=== PATIENT | female | born 1930 | race Caucasian/White ===

== ENCOUNTER 2016-06-01 21:33 | Inpatient (IN) | payer OTHER, MEDICARE ==
--- NOTE | 2016-06-01 21:47 | EDPHY ---
H & P - Medical/Surgical History Hx Asthma: No Hx Chronic Respiratory Disease: No Hx Diabetes: No Hx Cardiac Disease: Yes Hx Renal Disease: No Hx Cirrhosis: No Hx Alcoholism: No Hx HIV/AIDS: No Hx Splenectomy or Spleen Trauma: No Other PMH: depression, anxiety, prolapse colon 04/23 and 10/20 sx, valve disease and anemia Time Seen by Provider: 06/01/16 21:35 HPI/ROS: CHIEF COMPLAINT: Left ankle deformity and pain HISTORY OF PRESENT ILLNESS: 86-year-old female arrives via ambulance complaining of acute left ankle pain and deformity after her foot slipped on icy surface and was noted to have a deformity to the ankle, unable to bear weight. No other injury. No proximal pain or injury. No head injury. No back pain or injury. No straddle injury. Patient is currently in hospice secondary to multiple myeloma with diffuse lytic lesions REVIEW OF SYSTEMS: A ten point review of systems was performed and is negative with the exception of the items mentioned in the HPI PAST MEDICAL & SURGICAL HISTORY: multiple myeloma with lytic lesions. SOCIAL HISTORY: lives by herself PHYSICAL EXAM (Prior to examination, patient consented to physical exam, hands were washed and my usual and customary physical exam procedures followed) 1) GENERAL: Well-developed, well-nourished, alert and oriented. Appears to be in no acute distress. Answering questions appropriately. Smiling. 2) HEAD: Normocephalic, atraumatic 3) HEENT: Pupils equal, round, reactive to light bilaterally. Sclera anicteric. 4) NECK: Full range of motion, no meningeal signs. 5) LUNGS: Clear auscultation bilaterally, no wheezes, no rhonchi, no retractions. 6) HEART: Regular rate and rhythm, no murmur, no heave, no gallop. 7) ABDOMEN: No guarding, no rebound, no focal tenderness, 8) MUSCULOSKELETAL: Left lower extremity: Posterior same splint in place, removed revealing in externally rotated foot, visible deformity . DP PT pulses present and brisk with brisk capillary refill. 9) BACK: no midline vertebral tenderness, no fluctuance, no step-off, no obvious trauma, no visual or palpable abnormality. 10) SKIN: No rash, no petechiae. DIFFERENTIAL DIAGNOSIS: In no particular order including but not limited to fracture, sprain, pathologic fracture, compartment syndrome (Kimberly,Eliane She) Constitutional: Initial Vital Signs Temperature (C) 36.5 C 06/01/16 21:33 Heart Rate 86 06/01/16 21:33 Respiratory Rate 16 06/01/16 21:33 Blood Pressure 163/79 H 06/01/16 21:33 O2 Sat (%) 94 06/01/16 21:33 O2 Delivery Mode Room Air Allergies/Adverse Reactions: No Known Allergies Allergy (Verified 06/01/16 21:47) Home Medications: Medication Instructions Recorded ARIPiprazole [Abilify 2 mg (*)] 2 mg PO HS 10/13/15 Docusate Calcium 240 mg PO DAILY PRN 10/13/15 Oxcarbazepine [Trileptal] 150 mg PO BID 10/13/15 Venlafaxine HCl [Venlafaxine HCl 75 mg PO DAILY 10/13/15 ER] Venlafaxine HCl [Venlafaxine HCl 150 mg PO DAILY 10/13/15 ER] Acetaminophen [Tylenol 325mg (*)] 650 mg PO Q4 PRN #0 tab 10/22/15 Aspirin [Aspirin 81mg (*)] 81 mg PO DAILY 06/02/16 Cholecalciferol Vit D3 [Vitamin D3 1,000 units PO DAILY 06/02/16 (*)] Medical Decision Making Procedures: 10:00 p.m.: Procedure: Dislocation reduction. . The fractured-dislocation of the left ankle was reduced using traction and counter traction technique without complications. Post reduction the patient's neurovascular exam is normal. Post reduction x-ray demonstrates reduction of the joint to the anatomic position. The procedure was performed by myself. She has brisk pulses and capillary refill post reduction. Normal color normal temperature post reduction Procedure: Fracture treatment. The patient had x-rays taken and I confirmed that the patient had a fracture dislocation of the left ankle a 3 way Ortho Glass splint was applied by ER equipment engineering technician. After application of the splint I returned and re-examined the patient. The splint was adequately immobilizing the joint and distal to the splint the patient's circulation and sensation were intact. Patient shows no signs of compartment syndrome (Eliane Harris She) ED Course/Re-evaluation: 9:56 p.m.: Patient's daughter is at bedside and they confirmed the patient's hospice status. They do not want any surgical intervention performed. The patient does live by herself and has nursing care during the daylight hours only. Plan will be fracture/dislocation reduction, splinting, admit to hospitalist for further evaluation and possible transfer to a [facility] facility, and consultation with family. 10:21 p.m.: Phone consultation with hospitalist Dr. Storey who will admit patient. Discussed case with Dr Hernandez. 10:25 p.m.: Phone consultation with orthopedic PA Darlin with Dr Marcial Mitchell. Once again spoke with the family informed them that without surgical intervention patient will more than likely never be able to bear weight on this extremity. The patient and family verbalized understanding of this and they request no surgical intervention. (Eliane Harris) I did not see this patient while she was in the emergency department. However her care was discussed with the PA while the patient was in the department. I agree with treatment plan and management (Thai Hernandez) - Data Points Laboratory Results: Laboratory Results 06/01/16 21:42 06/01/16 21:42 Medications Given: Discontinued Medications Aripiprazole (Abilify) 2 mg PO HS BENNETT Stop: 11/28/16 23:10 Last Admin: 06/02/16 00:23 Dose: 2 mg Fentanyl (Sublimaze) 100 mcg IV EDNOW ONE Stop: 06/01/16 22:01 Last Admin: 06/01/16 22:00 Dose: 100 mcg Sodium Chloride (Ns) 1,000 mls @ 0 mls/hr IV ONCE ONE PRN Reason: Wide Open Stop: 06/01/16 22:01 Last Admin: 06/01/16 22:00 Dose: 1,000 mls Oxcarbazepine (Trileptal) 150 mg PO BID BENNETT Stop: 11/28/16 23:10 Last Admin: 06/02/16 09:55 Dose: 150 mg Departure - Departure Disposition: [facility] Inpatient Acute Clinical Impression: Closed left ankle fracture Qualifiers: Encounter type: initial encounter Qualified Code(s): S82.892A - Other fracture of left lower leg, initial encounter for closed fracture Condition: Fair
[2016-06-01] MEDS ORDERED: fentaNYL 100 MCG/2 ML INJ ONE (21:52)
[2016-06-01] MEDS ORDERED: fentaNYL 100 MCG/2 ML INJ IV ONE (22:00)
[2016-06-01] MEDS ORDERED: NS 1,000 ML IV ONE (22:00)
[2016-06-01 22:28] LABS: % IMMATURE GRANULYOCYTES 0.4 % (0.0-1.1); ABSOLUTE IMMATURE GRANULOCYTES 0.03 10^3/uL (0.00-0.10); ADD DIFF? NO; ADD MORPH? NO; ADD SCAN? NO; ATYPICAL LYMPHOCYTE FLAG 10 (0-99); FRAGMENT RBC FLAG 0 (0-99); HEMATOCRIT 40.6 % (38.0-47.0); HEMOGLOBIN 13.4 g/dL (12.6-16.3); LEFT SHIFT FLG 0 (0-99); LIPEMIA HEMOLYSIS FLAG 80 (0-99); MEAN CELL HEMOGLOBIN 28.9 pg (27.9-34.1); MEAN CELL VOLUME 87.7 fL (81.5-99.8); MEAN PLATELET VOLUME 9.9 fL (8.7-11.7); PLATELET CLUMPS FLAG 10 (0-99); PLATELET COUNT 271 10^3/uL (150-400); RED BLOOD CELL COUNT 4.63 10^6/uL (4.18-5.33); RED CELL DISTRIBUTION WIDTH 16.5 % (11.5-15.2)
[2016-06-01 22:32] LABS: ANION GAP 10 mEq/L (8-16); CARBON DIOXIDE 27 mEq/l (22-31); CHLORIDE 100 mEq/L (97-110); CREATININE 0.8 mg/dL (0.6-1.0); GLOMERULAR FILTRATION RATE > 60; GLUCOSE 94 mg/dL (70-100); POTASSIUM 4.4 mEq/L (3.5-5.2); SODIUM 137 mEq/L (134-144)
[2016-06-01 22:36] LABS: INR 0.98 (0.83-1.16); PROTIME(PATIENT) 12.9 SEC (12.0-15.0)
[2016-06-01 22:37] LABS: APTT 23.2 SEC (23.0-38.0)
[2016-06-01] MEDS ORDERED: ONDANSETRON 4 MG/2 ML VIAL IVP PRN (23:08)
[2016-06-01] MEDS ORDERED: ONDANSETRON DISINTEGRATING 4 MG TAB PO PRN (23:08)
[2016-06-01] MEDS ORDERED: ARIPiprazole 2 MG TAB PO SCH (23:11)
[2016-06-01] MEDS ORDERED: HYDROmorphONE/DILAUDID 1 MG/ML SYR IVP PRN (23:12)
--- NOTE | 2016-06-01 23:36 | PDGENHP ---
History and Physical - Chief Complaint fall with ankle pain - History of Present Illness Patient is an 86-year-old female with a history of depression and multiple myeloma, for which she is currently enrolled in Hospice, who presents to the ED with L ankle pain after a fall. Patient was out with her son walking down a [place] sidewalk, when she slipped on ice and fell resulting in acute L ankle pain. Patient denies head trauma or LOC, states she landed on her L side. On inspection of her ankle, there was an obvious deformity and she was unable to apply any weight to the limb. EMS was called and she was transported to the ED. Patient denies any recent fevers, chills, headache, dizziness, chest pain, palpitations, cough, shortness of breath, abd pain, n/v/d or dysuria. Regarding her MM, she has numerous lytic lesions of her skull, spine and long bones, however, has not yet suffered a fracture. She was diagnosed in 10/2015, was initially undergoing chemotherapy, however, by 04/2016 has decided to enrol in hospice, in conjunction with her family. On arrival to the ED, patient was afebrile and hemodynamically stable. She had an obvious L ankle deformity and x-ray confirmed displaced L ankle fracture. Dislocation was reduced and placed in a splint, with reduction confirmed on repeat X-ray. Labs were unremarkable. Patient and her family all agreed that they would not want to pursue any surgical correction/intervention on the ankle. Ortho was consulted and then the patient was admitted to the hospitalist service. History Information - Allergies/Home Medication List Allergies/Adverse Reactions: No Known Allergies Allergy (Verified 06/01/16 21:47) Home Medications: ARIPiprazole [Abilify 2 mg (*)] 2 mg PO DAILY 10/13/15 [Last Taken 10/13/15] Calcium Carbonate/Vitamin D3 [Calcium 600-Vit D3 400 Tablet] 1 each PO BID 10/12 [Last Taken 10/13/15] Cholecalciferol Vit D3 [Vitamin D3] 400 units PO DAILY 10/13/15 [Last Taken 10/21] Docusate Calcium 240 mg PO DAILY 10/13/15 [Last Taken Unknown] Oxcarbazepine [Trileptal] 150 mg PO BID 10/13/15 [Last Taken 10/13/15] Venlafaxine HCl [Venlafaxine HCl ER] 75 mg PO DAILY 10/13/15 [Last Taken ] Venlafaxine HCl [Venlafaxine HCl ER] 150 mg PO DAILY 10/13/15 [Last Taken ] I have personally reviewed and updated: family history, medical history, social history, surgical history - Past Medical History Additional medical history: multiple myeloma with multiple lytic lesions of the skull, spine and long bones. Enrolled in hospice care, 04/2016. Depression - Surgical History Additional surgical history: tonsillectomy. cataracts. colon prolapse repair x 2 - Family History Positive for: non-pertinent - Social History Smoking Status: Never smoked Alcohol Use: None Drug Use: None Additional social history: Patient currently lives alone, with family nearby, also has home health aid several times a week. Was recently prescribed a walker to be used with ambulation. Review of Systems ROS: 10pt was reviewed & negative except for what was stated in HPI & below Physical Exam Temp Pulse Resp BP Pulse Ox 36.6 C 80 16 139/82 H 99 06/01/16 22:42 06/01/16 22:42 06/01/16 22:42 06/01/16 22:42 06/01/16 22:48 O2 (L/minute) 2 Constitutional: no apparent distress, appears nourished, not in pain Eyes: PERRL, anicteric sclera, EOMI Ears, Nose, Mouth, Throat: moist mucous membranes, hearing normal, ears appear normal, no oral mucosal ulcers Cardiovascular: regular rate and rhythym, no murmur, rub, or gallop, pulses symmetric bilaterally, No JVD, No edema Peripheral Pulses: 2+: dorsalis-pedis (R), dorsalis-pedis (L) Respiratory: no respiratory distress, no rales or rhonchi, clear to auscultation Gastrointestinal: normoactive bowel sounds, soft, non-tender abdomen, no palpable masses, No guarding, No rebound Genitourinary: no bladder fullness, no bladder tenderness Skin: warm, normal color, abrasion (on L forearm, wrapped) Musculoskeletal: other (L ankle in soft splint; neurovascularly intact bilaterally; no other joint pain) Neurologic: AAOx3, sensation intact bilaterally, CN II-XII Intact, No weakness, No numbness, No pronator drift, No facial droop Psychiatric: interacting appropriately, not anxious, not encephalopathic, thought process linear Lab Data & Imaging Review 06/01/16 21:42 06/01/16 21:42 WBC 6.71 10^3/uL (3.80-9.50) 06/01/16 21:42 RBC 4.63 10^6/uL (4.18-5.33) 06/01/16 21:42 Hgb 13.4 g/dL (12.6-16.3) 06/01/16 21:42 Hct 40.6 % (38.0-47.0) 06/01/16 21:42 MCV 87.7 fL (81.5-99.8) 06/01/16 21:42 MCH 28.9 pg (27.9-34.1) 06/01/16 21:42 MCHC 33.0 g/dL (32.4-36.7) 06/01/16 21:42 RDW 16.5 % (11.5-15.2) H 06/01/16 21:42 Plt Count 271 10^3/uL (150-400) 06/01/16 21:42 MPV 9.9 fL (8.7-11.7) 06/01/16 21:42 Neut % (Auto) 54.6 % (39.3-74.2) 06/01/16 21:42 Lymph % (Auto) 34.7 % (15.0-45.0) 06/01/16 21:42 Dawes % (Auto) 6.9 % (4.5-13.0) 06/01/16 21:42 Eos % (Auto) 2.7 % (0.6-7.6) 06/01/16 21:42 Baso % (Auto) 0.7 % (0.3-1.7) 06/01/16 21:42 Nucleat RBC Rel Count 0.0 % (0.0-0.2) 06/01/16 21:42 Absolute Neuts (auto) 3.66 10^3/uL (1.70-6.50) 06/01/16 21:42 Absolute Lymphs (auto) 2.33 10^3/uL (1.00-3.00) 06/01/16 21:42 Absolute Monos (auto) 0.46 10^3/uL (0.30-0.80) 06/01/16 21:42 Absolute Eos (auto) 0.18 10^3/uL (0.03-0.40) 06/01/16 21:42 Absolute Basos (auto) 0.05 10^3/uL (0.02-0.10) 06/01/16 21:42 Absolute Nucleated RBC 0.00 10^3/uL (0-0.01) 06/01/16 21:42 Immature Gran % 0.4 % (0.0-1.1) 06/01/16 21:42 Immature Gran # 0.03 10^3/uL (0.00-0.10) 06/01/16 21:42 PT 12.9 SEC (12.0-15.0) 06/01/16 21:42 INR 0.98 (0.83-1.16) 06/01/16 21:42 APTT 23.2 SEC (23.0-38.0) 06/01/16 21:42 Sodium 137 mEq/L (134-144) 06/01/16 21:42 Potassium 4.4 mEq/L (3.5-5.2) 06/01/16 21:42 Chloride 100 mEq/L (97-110) 06/01/16 21:42 Carbon Dioxide 27 mEq/l (22-31) 06/01/16 21:42 Anion Gap 10 mEq/L (8-16) 06/01/16 21:42 BUN 31 mg/dL (7-23) H 06/01/16 21:42 Creatinine 0.8 mg/dL (0.6-1.0) 06/01/16 21:42 Estimated GFR > 60 06/01/16 21:42 Glucose 94 mg/dL (70-100) 06/01/16 21:42 Calcium 10.0 mg/dL (8.5-10.4) 06/01/16 21:42 Visualized and Interpreted imaging results: Yes Interpretation: L ankle x-ray: Displaced fracture of L distal fibular shaft and medial malleolus with dislocation laterally Assessment & Plan Assessment: Patient is an 86/F with multiple myeloma on hospice care who presents to the ED after a mechanical fall that has resulted in an acute closed L ankle fracture and dislocation. Dislocation has been reduced in the ED and patient has refused any surgical intervention for the fracture. Plan: # acute L ankle fracture S/p reduction and splint placement. Patient currently unable to weight bear and ortho has suggested that without surgical intervention, this may not be possible. Patient and her family are informed and aware of this, but would rather not have any invasive surgical procedure and would like to focus on comfort measures only. Will control pain, obtain PT/OT assessment to determine safety of patient returning home vs manager long term care care facility. # fall Per patient and her son who witnessed the fall, appears to have been purely mechanical in nature. Denies any preceding symptoms, cardiac symptoms, head trauma or loss of consciousness. Will f/u PT/OT recommendations, place on fall precautions. # multiple myeloma Patient reports pain is currently well controlled. Will confirm and continue home med regimen. # depression Stable, will cont home meds. # dispo: admit to observation status # DNR/DNI
[2016-06-02] MEDS: OXcarbazepine 300 MG TAB PO SCH ×3 (00:22→20:17)
[2016-06-02] MEDS: oxyCODONE IR 5 MG TAB PO PRN ×5 (04:37→16:55)
[2016-06-02] MEDS: ACETAMINOPHEN 325 MG TAB PO PRN ×2 (06:30→16:55)
--- NOTE | 2016-06-02 09:37 | GHP ---
DATE OF ADMISSION: 06/01/2016 ADMITTING DIAGNOSES: Left bimalleolar ankle fracture/dislocation. HISTORY OF PRESENT ILLNESS: The patient is an 86-year-old woman with history of depression, multipl e myeloma. She has been treated in hospice. She presented to the emergency room after a fall. She was evidently walking with her son and she slipped on the ice and fell. She had deformity in the l eft ankle. She did not lose consciousness. No other injuries were noted. She presented to the ER with obvious ankle deformity. Initial films showed a fracture-dislocation. Patient was reduced in the emergency room using a distraction dorsiflexion maneuver and placed into a posterior splint. PAST MEDICAL HISTORY: ALLERGIES: None. MEDICATIONS: Listed in chart. REVIEW OF SYSTEMS: Moderate overall weakness. No chills. No headache. No dizziness. No chest pa in. No shortness of breath. No cardiac palpitations. 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 She had not previously suffered a fracture. Initial diagnosis was in October of 2015. She was undergoing chemotherapy but decided April 2016 to proceed with hospice care. PHYSICAL EXAMINATION: GENERAL: Patient is alert, oriented, cooperative exam. She seems reasonably comfortable. CHEST: Clear. CARDIAC: Regular rate and rhythm. Normal S1, S2. No gallops or murm urs. ABDOMEN: Nontender. EXTREMITIES: Examination of the lower extremities reveal 1+ dorsalis pe dis pulses. Sensation is intact. She is able to flex, extend the toes. Moderate swelling in the l eft ankle. ASSESSMENT: Fracture-dislocation left ankle with both medial and lateral malleolar components, poss ible small posterior malleolar segment. PLAN: After a lengthy discussion with the family about her baseline medical status and multiple mye rusty, it is felt that the most prudent course of treatment is to proceed with open reduction, credit intern al fixation of her left bimalleolar ankle fracture. This will give her mobility and [facility]. Consent was obtained. Risks were described including the possibility of nonun ion, malunion, posttraumatic arthrosis. The patient understands these risks. We will do routine merlos rgical risks, elected to proceed with the surgery. /[id number]/MODL
[2016-06-02] MEDS: ENOXAPARIN 40 MG/0.4 ML SYR SC SCH (09:56)
--- NOTE | 2016-06-02 10:55 | HOSPPROG ---
Hospitalist Progress Note Assessment/Plan: Patient is an 86/F with multiple myeloma on hospice care who presents to the ED after a mechanical fall that has resulted in an acute closed L ankle fracture and dislocation. Dislocation has been reduced in the ED and patient has refused any surgical intervention for the fracture. In further discussion with the family and the patient, they would like to proceed with surgery. This will take place tomorrow morning. Today is my first encounter with the patient/chart reviewed. # acute L ankle fracture/dislocated S/p reduction and splint placement. Plan is for surgery tomorrow # fall/ gait instability fall was simply mechanical. no preceding symptoms # multiple myeloma in hospice care for this # systolic murmur patient states this is been there for multiple years. She has no shortness of breath or any type of chest pain # depression home meds resumed # dispo: patient will require another midnight stay for surgery in the morning making her IP/ unsafe for her to go home due to gait instability/ will need SNF. Subjective: Kirsty has no c/o chest pain, shortness of breath/ left ankle pain is well controlled. Objective: Vital Signs Temp Pulse Resp BP Pulse Ox 37.1 C 66 18 150/88 H 94 06/02/16 08:00 06/02/16 08:00 06/02/16 08:00 06/02/16 08:00 06/02/16 08:00 06/01/16 06/02/16 06/03/16 05:59 05:59 05:59 Intake Total 2500 Balance 2500 PT 12.9 SEC (12.0-15.0) 06/01/16 21:42 INR 0.98 (0.83-1.16) 06/01/16 21:42 - Physical Exam Constitutional: no apparent distress Eyes: PERRL Cardiovascular: regular rate and rhythym, systolic murmur Respiratory: no respiratory distress Gastrointestinal: normoactive bowel sounds Skin: warm Musculoskeletal: other (left ankle in splint) Neurologic: AAOx3 Psychiatric: interacting appropriately, not anxious ICD10 Worksheet Patient Problems: Problems Problem Status Onset Closed left ankle fracture Acute Severe anemia Acute TIA (transient ischemic attack) Acute
[2016-06-02] MEDS: VENLAFAXINE XR 150 MG CAP PO SCH (13:26)
[2016-06-02] MEDS: VENLAFAXINE XR 75 MG CAP PO SCH (13:26)
[2016-06-02] MEDS: ARIPiprazole 2 MG TAB PO SCH (20:17)
[2016-06-03] MEDS ORDERED: NS 1,000 ML IV SCH (01:00)
[2016-06-03] MEDS: oxyCODONE IR 5 MG TAB PO PRN ×2 (01:09→21:01)
[2016-06-03] MEDS: ACETAMINOPHEN 325 MG TAB PO PRN (01:09)
[2016-06-03] MEDS: ENOXAPARIN 40 MG/0.4 ML SYR SC SCH (07:41)
[2016-06-03] MEDS ORDERED: CEFAZOLIN 2 GM/DEXTROSE/100 ML BAG IV ONE (07:57)
[2016-06-03] MEDS ORDERED: BUPIVACAINE 0.5% 30 ML SDV ONE (07:59)
--- NOTE | 2016-06-03 08:01 | SOAPPROG ---
SOAP Progress Note Assessment/Plan: Assessment/Plan: - Take to OR today for ORIF of the L ankle - Continue pain management - PT/OT evaluation post-operatively - Antibiotics x 24hours post-operatively - Will be discharged to [facility] 06/03/16 08:00 Subjective: Pt is resting comfortable in the pre-op area. Pain has been well-controlled in the L ankle. Pt denies fever, chills, chest pain, SOB, abdominal pain, N/V/D, numbness, tingling, and calf pain. Objective: Vital Signs Temp Pulse Resp BP Pulse Ox 36.6 C 80 16 131/71 H 95 06/03/16 00:11 06/03/16 00:11 06/03/16 00:11 06/03/16 00:11 06/03/16 00:11 06/02/16 06/03/16 06/04/16 05:59 05:59 05:59 Intake Total 100 413 Output Total 200 500 Balance -100 -87 PT 12.9 SEC (12.0-15.0) 06/01/16 21:42 INR 0.98 (0.83-1.16) 06/01/16 21:42 Physical Exam - Physical Exam General Appearance: alert, no apparent distress Skin: normal color, warm/dry Extremities: pedal edema, swelling, other (Splint intact LLE; able to wiggle toes), No calf tenderness, No Brady's sign Neuro/Psych: no motor/sensory deficits, alert, normal mood/affect ICD10 Worksheet Patient Problems: Problems Problem Status Onset Closed left ankle fracture Acute Severe anemia Acute TIA (transient ischemic attack) Acute
[2016-06-03] MEDS ORDERED: fentaNYL 100 MCG/2 ML INJ ONE ×2 (08:18→10:27)
[2016-06-03] MEDS ORDERED: PROPOFOL 200 MG/20 ML VIAL ONE (08:18)
[2016-06-03] MEDS ORDERED: LIDOCAINE 2% JELLY 5 ML TUBE ONE (08:20)
[2016-06-03] MEDS ORDERED: ONDANSETRON 4 MG/2 ML VIAL ONE (08:20)
[2016-06-03] MEDS ORDERED: DEXAMETHASONE 4 MG/ML VIAL ONE (08:20)
[2016-06-03] MEDS ORDERED: LIDOCAINE 2% 5 ML SDV ONE (08:20)
[2016-06-03] MEDS ORDERED: ONDANSETRON 4 MG/2 ML VIAL IVP PRN (10:27)
[2016-06-03] MEDS ORDERED: CYCLOBENZAPRINE 10 MG TAB PO PRN (10:27)
[2016-06-03] MEDS ORDERED: TEMAZEPAM 15 MG CAP PO PRN (10:27)
[2016-06-03] MEDS ORDERED: diphenhydrAMINE 25 MG CAP PO PRN (10:27)
[2016-06-03] MEDS ORDERED: ONDANSETRON DISINTEGRATING 4 MG TAB PO PRN (10:27)
[2016-06-03] MEDS ORDERED: DIPHENOXYLATE/ATROPINE LOMOTIL 1 TAB PO PRN (10:27)
[2016-06-03] MEDS ORDERED: PROMETHAZINE HCL 25 MG/ML INJ IVP PRN (10:27)
[2016-06-03] MEDS ORDERED: LR 1,000 ML IV SCH (10:30)
--- NOTE | 2016-06-03 11:00 | GOP ---
DATE OF OPERATION: SURGEON: Pete Mitchell MD AUTO ENGINE MECHANIC: Darlin Rojo PA-C. ANESTHESIA: General. PREOPERATIVE DIAGNOSIS: Left bimalleolar ankle fracture. POSTOPERATIVE DIAGNOSIS: Left bimalleolar ankle fracture. PROCEDURE PERFORMED: Open reduction internal fixation of left bimalleolar ankle fracture. FINDINGS: DESCRIPTION OF PROCEDURE: The patient was taken to the operating room, administered general anesthe grecia, placed in the supine position. The left lower extremity was prepped and draped in normal steri le fashion. Esmarch exsanguination was performed, followed by elevation of thigh cuff to 275 mmHg p ressure. The medial incision was made over the medial malleolus. We elected to go to this side fir because of the soft tissue swelling. The incision was carried through dermal and subcutaneous ti ssues. Very easy dissection was performed. Periosteum was reflected. The fracture was reduced and secured with 2 K-wires. These were then replaced with 4-0 cancellous screws that were partially th readed, measuring 35 and 30 mm, respectively. The deltoid ligament was reapproximated with 3-0 Vicr yl suture, followed by closure of the subcutaneous tissue with 4-0 Vicryl suture, followed by closur e of the dermis with 4-0 Ethilon. A lateral incision was made over the distal fibula. This was car ried through dermal and subcutaneous tissues. Sharp and blunt dissection was performed down to the level of the fracture. The periosteum was reflected. The fracture was reduced and secured temporar varsha with bone clamps. An inter frag screw was placed anterior to posterior across the fracture. Th ere was a 3.5 cortical screw that was overdrilled with the proximal cortex with a 3.5 drill and dist al cortex with a 2.5 drill with lag effect. A 1/3 tubular plate with 6 holes was placed in the late ral fibula. Two holes were used distally with 4.0 cancellous screws and 3 holes proximally with 3.5 cortical screws for fixation. The plate was contoured prior to placement. Irrigation was performe d with normal saline. The anterior tib-fib ligament was reapproximated with 0 Vicryl suture. The subcutaneous tissues were closed with 4-0 Vicryl suture, followed by closure of the dermis with 4-0 Ethilon. A sterile compression dressing was applied. The patient tolerated the procedure well, transferred back to the recovery room in stable condition. No operative complications. COMPLICATIONS: None. /[id number]/MODL
[2016-06-03] MEDS ORDERED: HYDROmorphONE/DILAUDID 1 MG/ML SYR ONE (11:06)
[2016-06-03] MEDS: CHOLECALCIFEROL VIT D3 1,000 UNITS TAB PO SCH (12:31)
[2016-06-03] MEDS: VENLAFAXINE XR 150 MG CAP PO SCH (12:34)
[2016-06-03] MEDS: VENLAFAXINE XR 75 MG CAP PO SCH (12:34)
[2016-06-03] MEDS: OXcarbazepine 300 MG TAB PO SCH ×2 (12:34→20:57)
--- NOTE | 2016-06-03 13:01 | HOSPPROG ---
Hospitalist Progress Note Assessment/Plan: Patient is an 86/F with multiple myeloma on hospice care who presents to the ED after a mechanical fall that has resulted in an acute closed L ankle fracture and dislocation. Dislocation has been reduced in the ED and patient had refused any surgical intervention for the fracture. In further discussion with the family and the patient, they would like to proceed with surgery. # acute L ankle fracture/dislocated S/p ORIF patient is doing well with recent surgery. Has no pain during my evaluation # fall/ gait instability fall was simply mechanical. no preceding symptoms # multiple myeloma in hospice care for this # systolic murmur patient states this is been there for multiple years. She has no shortness of breath or any type of chest pain # depression home meds resumed # DVT prophylaxis low molecular weight heparin # dispo: pending. The patient would like her to go to [facility]. Will get labs for tomorrow Subjective: patient is feeling well. Up in the chair eating lunch. Says her appetite is great. Objective: Vital Signs Temp Pulse Resp BP Pulse Ox 36.6 C 86 16 125/68 H 98 06/03/16 11:29 06/03/16 11:29 06/03/16 11:29 06/03/16 11:29 06/03/16 11:29 06/02/16 06/03/16 06/04/16 05:59 05:59 05:59 Intake Total 100 963 Output Total 200 500 Balance -100 463 PT 12.9 SEC (12.0-15.0) 06/01/16 21:42 INR 0.98 (0.83-1.16) 06/01/16 21:42 - Physical Exam Constitutional: no apparent distress, appears nourished Eyes: PERRL Ears, Nose, Mouth, Throat: hearing normal Respiratory: no respiratory distress Gastrointestinal: normoactive bowel sounds Skin: warm Musculoskeletal: no muscle tenderness Neurologic: AAOx3 Psychiatric: interacting appropriately, not anxious ICD10 Worksheet Patient Problems: Problems Problem Status Onset Closed left ankle fracture Acute Severe anemia Acute TIA (transient ischemic attack) Acute
[2016-06-03] MEDS ORDERED: ceFAZolin 2 GM/DEXTROSE 100 ML IV SCH (14:00)
[2016-06-03] MEDS: ceFAZolin 2 GM in D5W 100 ML IV SCH ×2 (14:23→20:58)
[2016-06-03] MEDS: ACETAMINOPHEN 500 MG TAB PO SCH ×2 (14:23→20:57)
[2016-06-03] MEDS: ARIPiprazole 2 MG TAB PO SCH (20:57)
[2016-06-03] MEDS: FAMOTIDINE 20 MG TAB PO SCH (21:01)
[2016-06-04 05:25] LABS: % IMMATURE GRANULYOCYTES 0.5 % (0.0-1.1); ABSOLUTE IMMATURE GRANULOCYTES 0.03 10^3/uL (0.00-0.10); ADD DIFF? NO; ADD MORPH? NO; ADD SCAN? NO; ATYPICAL LYMPHOCYTE FLAG 0 (0-99); FRAGMENT RBC FLAG 0 (0-99); HEMOGLOBIN 10.2 g/dL (12.6-16.3); LEFT SHIFT FLG 0 (0-99); LIPEMIA HEMOLYSIS FLAG 80 (0-99); MEAN CELL HEMOGLOBIN 29.6 pg (27.9-34.1); MEAN CELL HEMOGLOBIN CONCENTR. 32.9 g/dL (32.4-36.7); MEAN CELL VOLUME 89.9 fL (81.5-99.8); MEAN PLATELET VOLUME 9.9 fL (8.7-11.7); PLATELET CLUMPS FLAG 0 (0-99); PLATELET COUNT 199 10^3/uL (150-400); RED BLOOD CELL COUNT 3.45 10^6/uL (4.18-5.33); RED CELL DISTRIBUTION WIDTH 16.1 % (11.5-15.2)
[2016-06-04 05:49] LABS: ANION GAP 5 mEq/L (8-16); CALCIUM 8.4 mg/dL (8.5-10.4); CARBON DIOXIDE 28 mEq/l (22-31); CHLORIDE 102 mEq/L (97-110); CREATININE 0.7 mg/dL (0.6-1.0); GLOMERULAR FILTRATION RATE > 60; GLUCOSE 99 mg/dL (70-100); POTASSIUM 5.1 mEq/L (3.5-5.2); SODIUM 135 mEq/L (134-144)
[2016-06-04] MEDS: ACETAMINOPHEN 500 MG TAB PO SCH ×3 (08:49→21:27)
[2016-06-04] MEDS: CHOLECALCIFEROL VIT D3 1,000 UNITS TAB PO SCH (08:50)
[2016-06-04] MEDS: VENLAFAXINE XR 75 MG CAP PO SCH (08:51)
[2016-06-04] MEDS: FAMOTIDINE 20 MG TAB PO SCH ×2 (08:51→21:28)
[2016-06-04] MEDS: ENOXAPARIN 40 MG/0.4 ML SYR SC SCH (08:51)
[2016-06-04] MEDS: OXcarbazepine 300 MG TAB PO SCH ×2 (08:51→21:33)
[2016-06-04] MEDS: VENLAFAXINE XR 150 MG CAP PO SCH (08:52)
--- NOTE | 2016-06-04 13:27 | SOAPPROG ---
SOAP Progress Note Assessment/Plan: Assessment: Stable post op ORIF Bimalleolar ankle FX Plan: Anticipate rehab stay. Probable Discharge tomorrow Consult case management Mobilize with PT/OT touch down wt bearing 06/04/16 13:23 Subjective: Mild pain Objective: Vital Signs Temp Pulse Resp BP Pulse Ox 36.6 C 73 16 102/54 L 91 L 06/04/16 12:00 06/04/16 12:00 06/04/16 12:00 06/04/16 12:03 06/04/16 12:00 Laboratory Results 06/04/16 04:17 06/04/16 04:17 06/03/16 06/04/16 06/05/16 05:59 05:59 05:59 Intake Total 100 1913 Output Total 200 1800 700 Balance -100 113 -700 PT 12.9 SEC (12.0-15.0) 06/01/16 21:42 INR 0.98 (0.83-1.16) 06/01/16 21:42 CSMT OK, in splint. Moves toes well ICD10 Worksheet Patient Problems: Problems Problem Status Onset Closed left ankle fracture Acute Severe anemia Acute TIA (transient ischemic attack) Acute
[2016-06-04] MEDS ORDERED: BISACODYL 10 MG SUPP PR PRN (13:44)
[2016-06-04] MEDS ORDERED: LACTULOSE 20 GM/30 ML UDCUP PO PRN (13:44)
--- NOTE | 2016-06-04 13:57 | HOSPPROG ---
Hospitalist Progress Note Assessment/Plan: Assessment: 86 year old female who presents with a mechanical fall resulting in acute closed L ankle fracture and dislocation Plan: # acute L ankle fracture/dislocated. Status post ORIF by Dr. Mitchell -touchdown weight-bearing -require residential facility, discharged tomorrow -continue pain management, add bowel regimen -IS # fall/ gait instability. Mechanical fall, no preceding symptoms # multiple myeloma. Currently on hospice care, resulting in chronic kidney disease # chronic kidney disease stage 3. Evidence of acute exacerbation, currently baseline # depression. cont home meds diet. regular ppx. high risk, hep [place] code. DNR dispo. ADD 06/05 to [facility], pending stability of Hgb and bowel movement Subjective: Patient has yet to have a bowel movement Objective: Vital Signs Temp Pulse Resp BP Pulse Ox 36.6 C 73 16 102/54 L 91 L 06/04/16 12:00 06/04/16 12:00 06/04/16 12:00 06/04/16 12:03 06/04/16 12:00 Laboratory Results 06/04/16 04:17 06/04/16 04:17 06/03/16 06/04/16 06/05/16 05:59 05:59 05:59 Intake Total 100 1913 Output Total 200 1800 700 Balance -100 113 -700 PT 12.9 SEC (12.0-15.0) 06/01/16 21:42 INR 0.98 (0.83-1.16) 06/01/16 21:42 - Physical Exam Constitutional: no apparent distress, appears nourished, not in pain Cardiovascular: systolic murmur (2/6 systolic murmur at the sternum), edema ( Left lower extremity), No irregularly irregular, No tachycardia Respiratory: no respiratory distress, no rales or rhonchi, clear to auscultation Gastrointestinal: soft, non-tender abdomen, no palpable masses, No normoactive bowel sounds (Hypoactive bowel sounds), No distension Neurologic: AAOx3, sensation intact bilaterally (Left distal to), No weakness ( Motor strength 5/5 left distal to) Psychiatric: interacting appropriately, not anxious, not encephalopathic, thought process linear ICD10 Worksheet Patient Problems: Problems Problem Status Onset TIA (transient ischemic attack) Acute Severe anemia Acute Closed left ankle fracture Acute
[2016-06-04] MEDS: SENNOSIDES/DOCUSATE SODIUM TAB PO SCH ×2 (14:07→21:28)
[2016-06-04] MEDS: ARIPiprazole 2 MG TAB PO SCH (21:28)
[2016-06-04] MEDS: POLYETHYLENE GLYCOL 3350 17 GM PKT PO PRN (23:51)
[2016-06-05 06:27] LABS: HEMATOCRIT 30.6 % (38.0-47.0); HEMOGLOBIN 10.3 g/dL (12.6-16.3)
--- NOTE | 2016-06-05 07:03 | SOAPPROG ---
SOAP Progress Note Assessment/Plan: Assessment/Plan: Left Bimalleolar ankle fracture s/p ORIF -Cont PT/OT, TDWB -Cont current PO pain regimen -Cont VTE ppx per hospitalist group -OK to d/c today pending PT/OT, CM and hospitalist approval 06/05/16 06:59 Subjective: No significant reports of pain this am. Does note some delay in bowel movement. States she is tolerating her medications well. Denies cp, sob or post calf pain bilat. No additional concerns or complaints at this time. Objective: Vital Signs Temp Pulse Resp BP Pulse Ox 36.6 C 83 16 119/62 89 L 06/05/16 00:10 06/05/16 00:10 06/05/16 00:10 06/05/16 00:10 06/05/16 00:10 Laboratory Results 06/05/16 04:27 06/04/16 04:17 06/04/16 06/05/16 06/06/16 05:59 05:59 05:59 Intake Total 1913 950 Output Total 1800 2100 Balance 113 -1150 PT 12.9 SEC (12.0-15.0) 06/01/16 21:42 INR 0.98 (0.83-1.16) 06/01/16 21:42 CSMT OK. Pt moves toes well. H&H stable. LLE in splint, no sig swelling noted. No hip TTP. Thigh compartments are supple. Neg Brady's contralaterally. DNVI BLE. ICD10 Worksheet Patient Problems: Problems Problem Status Onset Closed left ankle fracture Acute Severe anemia Acute TIA (transient ischemic attack) Acute
[2016-06-05] MEDS: ACETAMINOPHEN 500 MG TAB PO SCH ×3 (07:29→21:00)
[2016-06-05] MEDS: VENLAFAXINE XR 75 MG CAP PO SCH (07:30)
[2016-06-05] MEDS: SENNOSIDES/DOCUSATE SODIUM TAB PO SCH ×2 (07:30→21:00)
[2016-06-05] MEDS: VENLAFAXINE XR 150 MG CAP PO SCH (07:31)
[2016-06-05] MEDS: CHOLECALCIFEROL VIT D3 1,000 UNITS TAB PO SCH (07:31)
[2016-06-05] MEDS: FAMOTIDINE 20 MG TAB PO SCH ×2 (07:31→21:01)
[2016-06-05] MEDS: oxyCODONE IR 5 MG TAB PO PRN (07:32)
[2016-06-05] MEDS: POLYETHYLENE GLYCOL 3350 17 GM PKT PO PRN (07:37)
[2016-06-05] MEDS: HEPARIN 5,000 UNIT/0.5 ML SYR SC SCH ×3 (07:37→20:58)
--- NOTE | 2016-06-05 09:31 | PDIAF ---
- Diagnosis Diagnosis: L ankle fracture, s/p orif Code Status: Do Not Resuscitate - Medication Management Discharge Medications: Medications to Continue on Transfer ARIPiprazole [Abilify 2 mg (*)] 2 mg PO HS 10/13/15 [Last Taken 06/01/16] Docusate Calcium 240 mg PO DAILY PRN 10/13/15 [Last Taken Unknown] Oxcarbazepine [Trileptal] 150 mg PO BID 10/13/15 [Last Taken 06/01/16] Venlafaxine HCl [Venlafaxine HCl ER] 75 mg PO DAILY 10/13/15 [Last Taken ] Venlafaxine HCl [Venlafaxine HCl ER] 150 mg PO DAILY 10/13/15 [Last Taken ] Acetaminophen [Tylenol 325mg (*)] 650 mg PO Q4 PRN #0 tab 10/22/15 [Last Taken 06/01/16] Aspirin [Aspirin 81mg (*)] 81 mg PO DAILY 06/02/16 [Last Taken 06/01/16] Cholecalciferol Vit D3 [Vitamin D3 (*)] 1,000 units PO DAILY 06/02/16 [Last Taken 06/01/16] Heparin [Heparin SC 5000 unit/0.5 ml (*)] 5,000 unit SC Q8HRS #0 syr 06/05/16 [ Last Taken Unknown] Polyethylene Glycol 3350 [Miralax 17 gm (*)] 17 gm PO DAILY PRN #0 pkt 06/05/16 [Last Taken Unknown] Sennosides/Docusate Sodium [Senokot-S] 1 - 2 tab PO BID #0 tab 06/05/16 [Last Taken Unknown] oxyCODONE IR [Oxycodone Ir (*)] 5 - 10 mg PO Q3HRS PRN #0 tab 06/05/16 [Last Taken Unknown] Discharge Medications: Refer to the Discharge Home Medication list for PRN reason. - Orders Services needed: Registered Nurse, Certified Mutuel Cashier, Master Freight Unloader , Physical Therapy, Occupational Therapy Diet Recommendation: no restrictions on diet Diet Texture: Regular Texture Diet Wound Care Instructions: Keep incision clean. F/u in clinic w Dr Mitchell for assessment 10-14 days post op, call Dr Mitchell for any problems before then. Sutures/[place] Site: ankle; per Dr Mitchell Activity/Weight Bearing Restrictions: touchdown weight bearing LLE - Follow Up Care Current Providers and Referrals: Pete Mitchell MD [Medical Doctor] - (Follow-up in clinic 10-14 days post- operatively; call the office to schedule this appointment.)
[2016-06-05] MEDS: OXcarbazepine 300 MG TAB PO SCH ×2 (10:02→20:58)
--- NOTE | 2016-06-05 10:26 | PDDCSUM ---
Discharge Summary Discharge Summary: DISCHARGE DIAGNOSES: -LEFT BIMALLEOLAR ANKLE FRACTURE WITH DISLOCATION -OSTEOPOROSIS -GAIT INSTABILITY AND MECHANICAL FALL -MULTIPLE MYELOMA -CHRONIC KIDNEY DISEASE -CHRONIC STABLE DEPRESSION ON THERAPY CONSULTANTS: Dr. Pete Mitchell PROCEDURES: ORIF ankle fracture HOSPITAL COURSE SUMMARY: This patient had a mechanical fall at home and suffered a left by malleolar ankle fracture with dislocation. She was taken the operating room with Dr. Mitchell who performed open reduction internal fixation which was successful and without complication. Her postoperative course in the hospital has been uneventful. She is working well with therapies, eating well, moving her bowels , having no respiratory or cardiac issues and no fevers. At this point she is stable for discharge from hospital but has enough gait instability particularly with partial weight-bearing that she is requiring ongoing physical and occupational therapy in a supervised setting. She will be transferred today to a correction facility for this purpose INSTRUCTIONS: Touchdown weight-bearing only on the left leg at this time until follow-up with Dr. Mitchell MEDICATION CHANGES: Addition of p.r.n. analgesic and laxatives FOLLOW-UP PLAN: With Dr. Mitchell in 10 days for review of her fracture and wound Greater than 35 minutes bedside and care coordination time today
[2016-06-05] MEDS ORDERED: IOPAMIDOL (ISOVUE-370) 150 ML BTL IV ONE (14:40)
[2016-06-05 15:15] LABS: ANION GAP 9 mEq/L (8-16); CALCIUM 8.9 mg/dL (8.5-10.4); CARBON DIOXIDE 27 mEq/l (22-31); CHLORIDE 102 mEq/L (97-110); CREATININE 0.6 mg/dL (0.6-1.0); GLOMERULAR FILTRATION RATE > 60; GLUCOSE 114 mg/dL (70-100); POTASSIUM 4.5 mEq/L (3.5-5.2); SODIUM 138 mEq/L (134-144)
--- NOTE | 2016-06-05 18:26 | HOSPPROG ---
Hospitalist Progress Note Assessment/Plan: STROKE ALERT EVALUATION NOTE At approximately 20 minutes after 2 o'clock this afternoon I was called for stroke alert at this patient's bedside. Patient's family had come back somewhere around 2 o'clock to the patient's room and found her to be having difficulty. Her daughters who were at the bedside with me described that she was having slurred speech and not getting words out well and seemed to be drifting off to sleep. Did not notice any other focal abnormalities. By the time the stroke alert was called and arrived the symptoms had completely resolved. The patient was now wide awake again and not having any slurring of speech or word-finding difficulty. The patient denies any kind of headache, visual symptoms, focal neurologic or language symptoms. My neurologic exam at time of my arrival showed the patient to have minimal disorientation approximately the same this morning, and I have no focal motor, cranial nerve, speech or language abnormalities. Her vital signs were stable throughout this time. The patient had had some Flexeril and oxycodone. Bedside fingerstick blood sugar was 126. A CT scan was ordered and showed no evidence of bleeding or other acute abnormalities and was unchanged from her most recent head CT. CT angiogram of the neck and head was also obtained and there were no significant acute abnormalities, there was an old minimal aneurysmal change that was not felt to be clinically important at this time. I did review the case with Dr. Arellano of [facility] and we agreed that at this time there was no indication for any thrombolytics or any further specific neurologic imaging studies. Patient appeared in otherwise stable condition. This point I am cancelling her discharge and transfer to nursing facility and will observe her overnight. Or cardiac monitoring, begin daily aspirin, and check some chemistry in cholesterol in the morning. At the moment there is no indication for echocardiogram. Neurology consultation is requested Objective: Vital Signs Temp Pulse Resp BP Pulse Ox 36.9 C 58 L 14 143/89 H 94 06/05/16 16:00 06/05/16 16:00 06/05/16 16:00 06/05/16 16:00 06/05/16 16:00 Laboratory Results 06/05/16 04:27 06/05/16 14:50 06/04/16 06/05/16 06/06/16 06:59 06:59 06:59 Intake Total 1500 1350 200 Output Total 1300 2400 1750 Balance 200 -1050 -1550 PT 12.9 SEC (12.0-15.0) 06/01/16 21:42 INR 0.98 (0.83-1.16) 06/01/16 21:42 ICD10 Worksheet Patient Problems: Problems Problem Status Onset Closed left ankle fracture Acute Severe anemia Acute TIA (transient ischemic attack) Acute
[2016-06-05] MEDS: ARIPiprazole 2 MG TAB PO SCH ×2 (21:00→21:01)
[2016-06-05 23:37] VITALS: PULSE 96
[2016-06-06] MEDS: HEPARIN 5,000 UNIT/0.5 ML SYR SC SCH ×2 (05:07→13:55)
[2016-06-06 06:09] LABS: CHOLESTEROL 174 mg/dL (140-220); CHOLESTEROL/HDL RATIO 3.11 RATIO (1.00-4.44); HIGH DENSITY LIPOPROTEIN 56 mg/dL (40-85); LDL/HDL RATIO 1.73 RATIO (1.00-3.22); LOW DENSITY LIPOPROTEIN 97 mg/dL (80-100); NON-HIGH DENSITY LIPOPROTEIN 118 mg/dL (90-129); TRIGLYCERIDE 109 mg/dL (35-135); VERY LOW DENSITY LIPOPROTEINS 21 mg/dL (8-25)
[2016-06-06 07:36] VITALS: BP 129/73; RESP 16; TEMP 98; O2SAT 92
[2016-06-06] MEDS: OXcarbazepine 300 MG TAB PO SCH (07:39)
[2016-06-06] MEDS: CHOLECALCIFEROL VIT D3 1,000 UNITS TAB PO SCH (07:42)
[2016-06-06] MEDS: ACETAMINOPHEN 500 MG TAB PO SCH ×2 (07:43→16:02)
[2016-06-06] MEDS: SENNOSIDES/DOCUSATE SODIUM TAB PO SCH (07:43)
[2016-06-06] MEDS: VENLAFAXINE XR 75 MG CAP PO SCH (07:44)
[2016-06-06] MEDS: VENLAFAXINE XR 150 MG CAP PO SCH (07:44)
[2016-06-06] MEDS: FAMOTIDINE 20 MG TAB PO SCH (07:44)
[2016-06-06] MEDS: POLYETHYLENE GLYCOL 3350 17 GM PKT PO PRN (07:45)
[2016-06-06] MEDS ORDERED: ASPIRIN 81 MG CHEWABLE TAB PO SCH (09:00)
--- NOTE | 2016-06-06 09:10 | SOAPPROG ---
SOAP Progress Note Assessment/Plan: Assessment/Plan: - Continue pain management - Continue PT - TDWB LLE with walker - Okay for discharge to SNF once cleared by hospitalist 06/03/16 08:00 06/06/16 09:07 Subjective: Pt states she is having minimal pain in the left ankle unless she tries to get up. Pt does not remember having the work-up yesterday for a stroke. Pt denies fever, chills, headache, lightheadedness, chest pain, SOB, abdominal pain, N/V/D , calf pain, numbness and tingling. Objective: Vital Signs Temp Pulse Resp BP Pulse Ox 36.6 C 96 16 129/73 H 92 06/06/16 07:35 06/05/16 23:36 06/06/16 07:35 06/06/16 07:35 06/06/16 07:35 Laboratory Results 06/05/16 04:27 06/05/16 14:50 06/05/16 06/06/16 06/07/16 05:59 05:59 05:59 Intake Total 1350 550 Output Total 2400 2150 Balance -1050 -1600 PT 12.9 SEC (12.0-15.0) 06/01/16 21:42 INR 0.98 (0.83-1.16) 06/01/16 21:42 Physical Exam - Physical Exam General Appearance: alert, no apparent distress Extremities: normal inspection, normal capillary refill, other (Splint intact LLE), No pedal edema, No calf tenderness, No swelling, No Brady's sign Neuro/Psych: no motor/sensory deficits, alert ICD10 Worksheet Patient Problems: Problems Problem Status Onset Closed left ankle fracture Acute Severe anemia Acute TIA (transient ischemic attack) Acute
--- NOTE | 2016-06-06 14:27 | PDIAF ---
- Diagnosis Diagnosis: L ankle fracture, s/p orif, multiple myelolma advanced Code Status: Do Not Resuscitate - Medication Management Discharge Medications: Medications to Continue on Transfer ARIPiprazole [Abilify 2 mg (*)] 2 mg PO HS 10/13/15 [Last Taken 06/01/16] Docusate Calcium 240 mg PO DAILY PRN 10/13/15 [Last Taken Unknown] Oxcarbazepine [Trileptal] 150 mg PO BID 10/13/15 [Last Taken 06/01/16] Venlafaxine HCl [Venlafaxine HCl ER] 75 mg PO DAILY 10/13/15 [Last Taken ] Venlafaxine HCl [Venlafaxine HCl ER] 150 mg PO DAILY 10/13/15 [Last Taken ] Acetaminophen [Tylenol 325mg (*)] 650 mg PO Q4 PRN #0 tab 10/22/15 [Last Taken 06/01/16] Aspirin [Aspirin 81mg (*)] 81 mg PO DAILY 06/02/16 [Last Taken 06/01/16] Cholecalciferol Vit D3 [Vitamin D3 (*)] 1,000 units PO DAILY 06/02/16 [Last Taken 06/01/16] Heparin [Heparin SC 5000 unit/0.5 ml (*)] 5,000 unit SC Q8HRS #0 syr 06/05/16 [ Last Taken Unknown] Polyethylene Glycol 3350 [Miralax 17 gm (*)] 17 gm PO DAILY PRN #0 pkt 06/05/16 [Last Taken Unknown] Sennosides/Docusate Sodium [Senokot-S] 1 - 2 tab PO BID #0 tab 06/05/16 [Last Taken Unknown] oxyCODONE IR [Oxycodone Ir (*)] 5 - 10 mg PO Q3HRS PRN #0 tab 06/05/16 [Last Taken Unknown] Discharge Medications: Refer to the Discharge Home Medication list for PRN reason. - Orders Services needed: Registered Nurse, Certified Shirt Folding Machine Operator, Master Carpet Journeyman , Physical Therapy, Occupational Therapy Diet Recommendation: no restrictions on diet Diet Texture: Regular Texture Diet, Thin Liquids, Meds Whole w/Liquids Wound Care Instructions: Keep incision clean. F/u in clinic w Dr Mitchell for assessment 10-14 days post op, call Dr Mitchell for any problems before then. Sutures/[place] Site: ankle; per Dr Mitchell Activity/Weight Bearing Restrictions: touchdown weight bearing LLE - Follow Up Care Current Providers and Referrals: Pete Mitchell MD [Medical Doctor] - (Follow-up in clinic 10-14 days post- operatively; call the office to schedule this appointment.)
--- NOTE | 2016-06-06 16:29 | PDDCSUM ---
Discharge Summary Discharge Summary: DISCHARGE DIAGNOSES: -LEFT BIMALLEOLAR ANKLE FRACTURE WITH DISLOCATION -OSTEOPOROSIS -GAIT INSTABILITY AND MECHANICAL FALL -MULTIPLE MYELOMA -CHRONIC KIDNEY DISEASE -CHRONIC STABLE DEPRESSION ON THERAPY CONSULTANTS: Dr. Pete Mitchell PROCEDURES: ORIF of bimalleolar ankle fracture HOSPITAL COURSE SUMMARY: This patient presented to the hospital after a mechanical fall suffering a bimalleolar left ankle fracture with dislocation. This was treated with ORIF by Dr. Mitchell which was successful and uncomplicated. Her initial postoperative course was unremarkable and she was set to transfer from here to assisted for rehabilitation on June 05. However just before she was sent to leave the patient had an acute episode with decreased alertness in change in speech. Stroke alert was called however on clinical evaluation her syndrome appeared much more consistent with an acute confusional state. She did have CT scan of the head and CT angio of the neck which were unrevealing for any acute abnormalities. She had no atrial fibrillation, no other cardiac issues, no fevers, nothing to suggest hypoglycemia. After this episode her sedating medicines were decreased and she had no further episodes. She was seen by Dr. Epsinoza Leblanc of Neurology who concurred. At this point she is felt stable for discharge to continue her rehabilitation process. The patient does have multiple myeloma and has been on hospice care related to this. She plans to continue this hospice care apparently after her rehabilitation FOLLOW-UP PLAN: Transfer today to assisted facility for ongoing rehabilitation. She will follow up with Dr. Mitchell in clinic in 1 week for reassessment of her ankle and wound. Greater than 35 minutes bedside and care coordination time today
--- NOTE | 2016-06-06 19:23 | GCON ---
CHIEF COMPLAINT: Transient slurred speech. HISTORY OF PRESENT ILLNESS: Dr. Bony Santos of the hospitalists service consulted Neurology for tom luation of patient's symptoms. Results of evaluation discussed directly with . This is an 86-year-old female with history of depression and multiple myeloma, for which she is curr ently enrolled in hospice. She presented to the emergency room with a left ankle fracture. This wa s addressed, and the patient's was planned for discharge on June 05, 2016, when she had a 20-min ka[place]ab episode of slurred speech. Her daughter was at bedside and stated a week prior to this she also had a transient episode of slurred speech. Her symptoms completely resolved. A stroke alert was c alled, so the patient had a stat head CT and CT angiogram of the head and neck, which was unremarkab le. Since that time, the patient is back to her baseline, which is slightly inattentive cognition b ut generally no focal neurologic deficits. Patient's daughter is her healthcare surrogate and would like to take the patient out of the hospital to rehab as soon as possible. ALLERGIES: No known drug allergies. 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 FAMILY HISTORY: Daughter is alive. SOCIAL HISTORY: Never smoked. REVIEW OF SYSTEMS: A 10-point review of systems is negative except as what is in HPI. PHYSICAL EXAMINATION: VITAL SIGNS: Blood pressure 129/73, respirations 16, satting 92% on room air , temperature 36.6 degrees Celsius. GENERAL: No acute distress. EYES: Funduscopic exam, could not visualize optic discs. LUNGS: Clear to auscultation bilaterally. No rhonchi or rales. HEART: R egular rate and rhythm. No murmurs. No carotid bruits auscultated. NEUROLOGIC EXAMINATION: MENTAL STATUS: Alert and oriented to person, place, and date. Memory, att ention, language, and fund of knowledge appeared grossly intact, although with the more in-depth cog nitive questions the patient does appear to have lack of insight into her condition. CRANIAL NERVES: Pupils equal, round, and react to light. The visual marquez are full to confrontati on. Extraocular muscles intact. Bilateral face intact to sensation and motor movement. Hearing in tact to conversation. Uvula rises symmetrically. Tongue protrudes midline. 5/5 strength. MOTOR: Normal tone and strength of all 4 extremities other than her left ankle fracture which I cou ld not test. SENSORY: All 4 extremities intact to light touch. REFLEXES: Right patella 3/4. COORDINATION: Right leg and bilateral hands are normal. Gait deferred NIH STROKE SCALE: Zero. LABORATORY DATA: LDL 97. RADIOLOGY: Head CT shows no acute changes or bone lesions from her known multiple myeloma visualize d on this study. CT angiogram of the head and neck on June 05, 2016, shows a stable 2-3 mm aneu rysm but no acute changes. ASSESSMENT: 1. Two 20-minute episodes of transient slurred speech in the last week, concerning for transient is chemic attack versus acute confusional state: I have discussed the situation with the patient and h er daughter. Given the patient is on hospice for multiple myeloma, they are not interested in any e valuation for these conditions other than just beginning an aspirin which they began a week ago. Th ey understand the risk of not pursuing further evaluation, but given the patient is on hospice, they are more interested in improving her quality of life at this time. 2. Incidentally noted aneurysm: Again, the patient is not interested in surgical evaluation for th is condition. 3. Multiple myeloma, on hospice. RECOMMENDATION: 1. Agree with aspirin 81 mg daily. 2. Patient and her daughter declined any further evaluation for her episodes of slurred speech or f or her incidentally noted aneurysm at this time. 3. No further neurologic workup needed. Neurology will sign off. /[id number]/[id number]
== END 2016-06-06 16:19 | DRG 493 ==
LOC: EDUNIT# → INTOOBSV 22:22 → F3N 23:30 → OBSVTOIN 06-02 13:54
PROVIDERS: ADMIT Internal Medicine; ATTEND Internal Medicine
PROC: 0QSHXZZ Reposition Left Tibia, External Approach (ICD-10-PCS; 2016-06-02)
PROC: 0QSKXZZ Reposition Left Fibula, External Approach (ICD-10-PCS; 2016-06-02)
PROC: 2W3PX1Z Immobilization of Left Upper Leg using Splint (ICD-10-PCS; 2016-06-02)
PROC: 0QSK04Z Reposition Left Fibula with Internal Fixation Device, Open Approach (ICD-10-PCS; principal; 2016-06-03 08:15)
PROC: 0QSH04Z Reposition Left Tibia with Internal Fixation Device, Open Approach (ICD-10-PCS; principal; 2016-06-03 08:15)
DX: S82.842A Displaced bimalleolar fracture of left lower leg, initial encounter for closed fracture (principal); C90.00 Multiple myeloma not having achieved remission; R41.0 Disorientation, unspecified; F32.9 Major depressive disorder, single episode, unspecified; M81.0 Age-related osteoporosis without current pathological fracture; R26.9 Unspecified abnormalities of gait and mobility; N18.3 Chronic kidney disease, stage 3 (moderate); W01.0XXA Fall on same level from slipping, tripping and stumbling without subsequent striking against object, initial encounter; Z66 Do not resuscitate
CPT/HCPCS: 92610-GN; 96374; 97110-GP; 97116-GP; 97161-GP; 97165-GO; 97530-GP; 97535-GO; C1713; C1769; G0378; G8978-GP-CK; G8979-GP-CI; G8987-GO-CK; G8988-GO-CJ; G8996-GN-CH; G8997-GN-CH; G8998-GN-CH; J0690; J1100; J1170; J1650; J2405; J2704; J3010; Q9967